=== PATIENT | female | born 1960 | race Caucasian/White ===

== ENCOUNTER 2018-05-20 20:25 | Emergency (ER) | payer BC ==
[~2018-05-20] VITALS: Ht 162.6 cm; Wt 54.4 kg
--- OUTSIDE RECORDS SUMMARY | 2018-05-20 20:27 | XMS REPORT | Clinical Summary ---
Author Author [facility] Organization [facility] Address Unknown Phone Unavailable Care Team Providers Care Manuscripts Curator Name Role Phone Yuki Shabazz MD PCP Allergies Comments Active Allergy Reactions Severity Noted Date Myalgias, ? Knee pain. Cyclobenzaprine Palpitations Low 11/17/2012 Burning of skin with large blisters, skin very raw Sulfa (Sulfonamide Rash Low 11/28/2007 Antibiotics) Medications End Date Status Medication Sig Dispensed Refills Start Date Active aspirin-calcium carbonate Take 81 mg by 0 81 mg-300 mg calcium(777 mouth. mg) tablet Active LOPREEZA 1-0.5 mg per 10 tablet 8 Active multivitamin (THERAGRAN) Take by 0 tablet mouth. Active biotin 5 mg capsule Take by 0 mouth. Active cholecalciferol, vitamin Take by 0 D3, (VITAMIN D3) 1,000 mouth. unit tablet Active estradiol (ESTRACE) 0.01 Insert 2 g 0 % (0.1 mg/gram) vaginal into the cream vagina daily. Active traMADol (ULTRAM) 50 mg Take 50 mg by 0 tablet mouth every 6 (six) hours as needed for moderate pain. Active indomethacin (INDOCIN) 25 Take 25 mg by 0 MG capsule mouth 2 (two) times a day with meals. 11/01/2017 Discontinued baclofen (LIORESAL) 10 MG TAKE 1 TABLET 0 tablet BY MOUTH 7 EVERY NIGHT AT BEDTIME 11/01/2017 Discontinued meloxicam (MOBIC) 15 mg Take 1 tablet 30 tablet 3 tablet (15 mg total) 8 by mouth daily for 120 days. Take with food Active Problems Problem Noted Date De Quervain's tenosynovitis, right 09/10/2017 Encounters Care Team Description Date Type Specialty Yuki Shabazz MD 02/25/2018 Telephone Family Medicine Yuki Shabazz MD 11/03/2017 Orders Only Family Medicine Yuki Shabazz MD Annual visit for general adult medical examination with abnormal findings; Fatigue, unspecified type; Vitamin D deficiency 11/01/2017 Lab Lab Yuki Shabazz MD Well woman exam with routine gynecological exam (Primary Dx); Annual visit for general adult medical examination with abnormal findings; Osteopenia, unspecified location; Vitamin D deficiency; Fatigue, unspecified type; Colon cancer screening 11/01/2017 Office Visit Family Medicine Gege Luis MA De Blake's tenosynovitis, right (Primary Dx) 09/22/2017 Orders Only Orthopedic Surgery Gege Luis MA 09/13/2017 Orders Only Orthopedic Surgery Yfn Nuñez MD De Quervain's tenosynovitis, right (Primary Dx); Tendonitis of wrist, right 09/10/2017 Office Visit Orthopedic Surgery after 05/19/2017 Immunizations Name Dates Previously Given Next Due Tdap 03/21/2017, 04/27/2013 Family History Medical History Relation Name Comments Cancer Father Torres oral; smoker Tuberculosis Father Torres Cirrhosis Mother alcoholic Relation Name Status Comments Father Torres Mother Social History Date Tobacco Use Types Packs/Day Years Used Never Smoker Smokeless Tobacco: Never Used Alcohol Use Drinks/Week oz/Week Comments No Sex Assigned at Date Recorded Not on file Industry Job Start Date Occupation Not on file Not on file Not on file Travel End Travel History Travel Start No recent travel history available. Last Filed Vital Signs Time Taken Vital Sign Reading 11/01/2017 8:25 AM CDT Blood Pressure 156/73 11/01/2017 8:25 AM CDT Pulse 73 11/01/2017 8:25 AM CDT Temperature 37.1 C (98.7 F) - Respiratory Rate - 11/01/2017 8:25 AM CDT Oxygen Saturation 100% - Inhaled Oxygen - Concentration 11/01/2017 8:25 AM CDT Weight 64 kg (141 lb) 11/01/2017 8:25 AM CDT Height 157.5 cm (5' 2") 11/01/2017 8:25 AM CDT Body Mass Index 25.79 Plan of Treatment Health Maintenance Due Date Last Done Comments BREAST CANCER SCREENING 10/05/2009 COLON CANCER SCREENING 10/05/2009 SHINGRIX VACCINE (1 of 2) 10/05/2009 INFLUENZA VACCINE 01/19/2018 03/21/2017, 03/05/2016, 04/21/2015, Additional history exists CERVICAL CANCER SCREENING 11/01/2020 11/01/2017 HEPATITIS B VACCINES Aged Out No longer eligible based on patient's age to complete this topic IPV VACCINES Aged Out No longer eligible based on patient's age to complete this topic MENINGOCOCCAL VACCINE Aged Out No longer eligible based on patient's age to complete this topic Procedures Comments Procedure Name Priority Date/Time Associated Diagnosis OCCULT BLOOD, STOOL Routine 11/03/2017 12:00 AM CDT THINPREP TIS PAP AND HPV Routine 11/01/2017 MRNA E6/E7 REFLEX HPV 9:19 AM CDT 16,18/45 PAP W/AGE BASED SCREENING Routine 11/01/2017 Well woman exam with PROTOCOLS 9:19 AM CDT routine gynecological exam VITAMIN D 25 HYDROXY Routine 11/01/2017 Vitamin D deficiency LEVEL 9:13 AM CDT THYROID STIMULATING Routine 11/01/2017 Fatigue, unspecified type HORMONE 9:13 AM CDT URINALYSIS, AUTOMATED Routine 11/01/2017 Annual visit for general WITH MICROSCOPY 9:13 AM CDT adult medical examination with abnormal findings LIPID PANEL Routine 11/01/2017 Annual visit for general 9:13 AM CDT adult medical examination with abnormal findings COMPREHENSIVE METABOLIC Routine 11/01/2017 Annual visit for general PANEL 9:13 AM CDT adult medical examination with abnormal findings CBC WITH PLATELET AND Routine 11/01/2017 Annual visit for general DIFFERENTIAL 9:13 AM CDT adult medical examination with abnormal findings XR HAND 3+ VW RIGHT Routine 09/10/2017 Tendonitis of wrist, 2:51 PM CDT right [place] INJECT TENDON Routine 09/10/2017 De Quervain's SHEATH/LIGAMENT 2:50 PM CDT tenosynovitis, right after 05/19/2017 Results * Occult blood, stool (11/03/2017 12:00 AM CDT) Fecal globin result SEE NOTE [employer] Comment: [place] FECAL GLOBIN BY IMMUNOCHEMISTRY MICRO NUMBER:[id number] TEST STATUS: FINAL SPECIMEN SOURCE: INSURE (TM) FOBT TEST CARD SPECIMEN QUALITY:ADEQUATE RESULT: Not Detected Narrative Performed At FASTING: UNKNOWN [facility] Resulting Agency Comment Performing Organization Information: Site ID: [id number] Name: [facility] Address: [address] [place] [phone] Director: Zeynep Heath Performing Organization Address City/[facility]/Zipcode Phone Number [facility] [employer] [address] [address] * PAP W/AGE BASED SCREENING PROTOCOLS (11/01/2017 9:19 AM CDT) Comment Comment: [facility] This order for age-based [facility] cancer and STI II screening follows ACOG guidelines(PB 168, 140, OCQ624). See individual assays for performing site location. Specimen Swab Resulting Agency Comment Performing Organization Information: Site ID: [id number] [facility]: [facility] Address: [address] [place] [phone] Director: Dr. Gutierrez Arias Performing Organization Address [facility]/Zipcode Phone Number [address] [place] [address] II * THINPREP TIS PAP AND HPV mRNA E6/E7 REFLEX HPV 16,18/45 (11/01/2017 9:19 AM CDT) Clinical information None given [employer] [place] Date of last menstrual NONE GIVEN [facility] period [place] Prev. pap: NONE GIVEN [facility] [place] Prev. bx: NONE GIVEN [facility] [place] Source None given [facility] [place] Statement of adequacy Comment: [facility] Satisfactory for evaluation. [place] Endocervical/transformation zone component absent. Interpretation/result: Comment: Negative for [employer] intraepithelial lesion or [place] malignancy. Comment Comment: [employer] This Pap test has been [place] evaluated with computer assisted technology. 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 It is not a diagnostic test and is subject to false negative and false positive results. It is most reliable when a satisfactory sample, regularly obtained, is submitted with relevant clinical findings and history, and when the Pap result is evaluated along with historic and current clinical information. HPV mRNA e6/e7 Not Detected Not Detected [employer] Comment: [place] This test was performed using the APTIMA HPV Assay ([employer] This assay detects E6/E7 viral messenger RNA (mRNA) from 14 high-risk HPV types (16,18,31,33,35,39,45,51,52,56 ,58,59,66,68). Resulting Agency Comment Performing Organization Information: Site ID: [id number] Name: [facility] Address: [address] [place] [phone] Director: Zeynep Heath Performing Organization Address [facility] [place] [address] * Vitamin D 25 hydroxy level (11/01/2017 9:13 AM CDT) Vitamin D, 25-hydroxy 43 30 - 100 ng/mL [facility] Comment: [place] Vitamin D Status 25-OH Vitamin D: Deficiency: <20 ng/mL Insufficiency: 20 - 29 ng/mL Optimal: > or=30 ng/mL For 25-OH Vitamin D testing on patients on D2-supplementation and patients for whom quantitation of D2 and D3 fractions is required, the QuestAssureD(TM) 25-OH VIT D, (D2,D3), LC/MS/MS is recommended: order code 44931 (patients >2yrs). For more information on this test, go to: http://education.[facility].com/faq/FMG478 (This link is being provided for informational/educational purposes only.) Specimen Blood Resulting Agency Comment Performing Organization Information: Site ID: [id number] Name: [facility] Address: [address] [place] [phone] Director: Zeynep Heath Performing Organization Address [facility] [place] [address] * Urinalysis, automated with microscopy (11/01/2017 9:13 AM CDT) Color, UA YELLOW YELLOW [employer] [place] Appearance CLEAR CLEAR [facility] [place] Specific gravity, urine 1.012 1.001 - 1.035 [facility] [place] pH, urine 5.5 5.0 - 8.0 [facility] [place] Glucose, urine NEGATIVE NEGATIVE [facility] [place] Bilirubin, UA NEGATIVE NEGATIVE [facility] [place] Ketones, UA NEGATIVE NEGATIVE [facility] [place] Occult blood, urine NEGATIVE NEGATIVE [facility] [place] Protein, UA NEGATIVE NEGATIVE [facility] [place] Nitrite, UA NEGATIVE NEGATIVE [facility] [place] Leukocyte esterase, UA NEGATIVE NEGATIVE [facility] [place] WBC, UA 0-5 < OR=5 /HPF [facility] [place] RBC, UA 0-2 < OR=2 /HPF [facility] [place] Squamous epithelial 0-5 < OR=5 /HPF [facility] cells, UA [place] Bacteria, UA FEW (A) NONE SEEN /HPF [facility] [place] Hyaline casts, UA NONE SEEN NONE SEEN /LPF [employer] [place] Specimen Blood Resulting Agency Comment Performing Organization Information: Site ID: [id number] Name: [facility] Address: [address] [place] [phone] Director: Zeynep Heath Performing Organization Address City/State/Zipcode Phone Number [facility] [place] [phone] * CBC with platelet and differential (11/01/2017 9:13 AM CDT) WBC 10.7 3.8 - 10.8 Thousand/uL [employer] [place] RBC 4.56 3.80 - 5.10 Million/uL [employer] [place] HGB 12.5 11.7 - 15.5 g/dL [employer] [place] HCT 38.9 35.0 - 45.0 % [employer] [place] MCV 85.3 80.0 - 100.0 fL [employer] [place] MCH 27.4 27.0 - 33.0 pg [employer] [place] MCHC 32.1 32.0 - 36.0 g/dL [employer] [place] RDW 13.5 11.0 - 15.0 % [employer] [place] Platelet count 378 140 - 400 Thousand/uL [employer] [place] MPV 10.0 7.5 - 12.5 fL [employer] [place] Neutrophils, absolute 8,079 (H) 1,500 - 7,800 cells/uL [employer] [place] Lymphocytes, absolute 1,680 850 - 3,900 cells/uL [employer] [place] Monocytes, absolute 674 200 - 950 cells/uL [employer] [place] Eosinophils, absolute 203 15 - 500 cells/uL [employer] [place] Basophils, absolute 64 0 - 200 cells/uL [employer] [place] Neutrophils 75.5 % [employer] [place] Lymphocytes 15.7 % [facility] Monocytes 6.3 % [facility] Eosinophils 1.9 % [facility] Basophils + RC 0.6 % [employer] [place] Specimen Blood Resulting Agency Comment Performing Organization Information: Site ID: [facility] [place]) Name: [facility] Address: [address] [place] [address] Director: Zeynep Heath Performing Organization Address City/[facility] [place] Phone Number [facility] [place] [place] [address] * Thyroid stimulating hormone (11/01/2017 9:13 AM CDT) TSH 3.03 0.40 - 4.50 mIU/L [facility] [employer] [place] Specimen Blood Resulting Agency Comment Performing Organization Information: Site ID: [facility] [place]) Name: [facility] Address: [address] [place] [address] Director: Zeynep Heath Performing Organization Address [facility] [place] [address] * Lipid panel (11/01/2017 9:13 AM CDT) Cholesterol, total 193 <200 mg/dL [facility] [employer] [place] HDL cholesterol 48 (L) >50 mg/dL [employer] [place] Triglycerides 58 <150 mg/dL [facility] LDL cholesterol 131 (H) mg/dL (calc) [employer] calculated Comment: [place] Reference range: <100 Desirable range <100 mg/dL for primary prevention; <70 mg/dL for patients with CHD or diabetic patients with > or=2 CHD risk factors. LDL-C is now calculated using the Kush calculation, which is a validated novel method providing better accuracy than the Friedewald equation in the estimation of LDL-C. Gabriel THURSTON et al. JERRELL. 2013;310(19): 2767-2764 (http://education.[employer].com/faq/QQB162) Cholesterol/HDL ratio 4.0 <5.0 (calc) [facility] Non-HDL cholesterol 145 (H) <130 mg/dL (calc) [employer] Comment: [place] For patients with diabetes plus 1 major ASCVD risk factor, treating to a non-HDL-C goal of <100 mg/dL (LDL-C of <70 mg/dL) is considered a therapeutic option. Specimen Blood Resulting Agency Comment Performing Organization Information: Site ID: [id number] Name: [facility] Address: [address] [place] [phone] Director: Zeynep Heath Performing Organization Address City/State/Zipcode Phone Number [facility] [address] [address] * Comprehensive metabolic panel (11/01/2017 9:13 AM CDT) Glucose 92 65 - 99 mg/dL [employer] Comment: [place] Fasting reference interval BUN, whole blood 12 7 - 25 mg/dL [employer] [place] Creatinine 0.68 0.50 - 1.05 mg/dL [employer] Comment: [place] For patients >49 years of age, the reference limit for Creatinine is approximately 13% higher for people identified as -Lebanese. EGFR Non-Afr. [place] 96 > OR=60 mL/min/1.73m2 [employer] [place] EGFR 112 > OR=60 mL/min/1.73m2 [facility] BUN/creatinine ratio NOT APPLICABLE 6 - 22 (calc) [employer] [place] Sodium 142 135 - 146 mmol/L [facility] Potassium 3.8 3.5 - 5.3 mmol/L [employer] [place] Chloride 108 98 - 110 mmol/L [employer] [place] CO2 29 20 - 31 mmol/L [employer] [place] Calcium 8.9 8.6 - 10.4 mg/dL [employer] [place] Protein 6.6 6.1 - 8.1 g/dL [employer] [place] Albumin, S 4.1 3.6 - 5.1 g/dL [employer] [place] Globulin, total 2.5 1.9 - 3.7 g/dL (calc) [facility] Albumin/globulin ratio 1.6 1.0 - 2.5 (calc) [employer] [place] Total bilirubin 0.3 0.2 - 1.2 mg/dL [employer] [place] Alkaline phosphatase 49 33 - 130 U/L [employer] [place] AST 14 10 - 35 U/L [employer] [place] ALT 17 6 - 29 U/L [employer] [place] Specimen Blood Resulting Agency Comment Performing Organization Information: Site ID: [id number] Name: [facility] Address: [address] [place] [address] Director: Zeynep Heath Performing Organization Address City/State/Zipcode Phone Number [facility] [place] [address] [place], [place] [phone] * XR Hand 3+ Vw Right (09/10/2017 2:51 PM CDT) Impressions Performed At Negative study. [facility] Narrative Performed At [facility] FINDINGS: 3 views demonstrate no fracture, dislocation or radiopaque foreign body. There is no chondrocalcinosis or soft tissue calcification. Joint spaces are within normal limits. Performing Organization Address City/[facility]/Zipcode Phone Number [facility] [address] [place] [address] * Hand/Upper Extremity Injection/Arthrocentesis (09/10/2017 2:50 PM CDT) Narrative Performed At Yfn Nuñez MD 09/10/20173:26 PM Hand/Upper Extremity Injection/Arthrocentesis Date/Time: 09/10/2017 3:23 PM Consent given by: patient Site marked: site marked Timeout: Immediately prior to procedure a time out was called to verify the correct patient, procedure, equipment, learning support assistant and site/side marked as required Supporting Documentation Indications: therapeutic Procedure Details Condition: de Quervain's tenosynovitis Site: R extensor compartment 1 Preparation: Patient was prepped and draped in the usual sterile fashion Right side: Needle size: 27 G Approach: medial Patient tolerance: patient tolerated the procedure well with no immediate complications Right Extensor Compartment 1 Medications administered: 3 mg betamethasone acetate & sodium phosphate 6 mg/mL; 0.5 mL lidocaine 10 mg/mL (1 %) Injection Type: tendon sheath Platelet Rich Plasma Used: no PRP Used Fluoroscopic Needle Guidance Used: no fluoroscopic needle guidance after 05/19/2017 Insurance Payer Benefit Subscriber ID Type Phone Address Plan / Group BCBS [employer]STINA xxxxxxxxxxxx PPO BLUE CROSS Advance Directives Patient has advance care planning documents on file. For more information, brien deleon contact: Regan Soriano [phone] [place] [address]
[2018-05-20] MEDS ORDERED: LIDOCAINE HCL 1% LOCAL INJ 20 ML VIAL INJ ONE (20:45)
[2018-05-20] MEDS ORDERED: TETANUS/DIPHTHERIA TOX ADULT 0.5 ML SYR IM ONE (21:15)
[2018-05-20] MEDS ORDERED: BACITRACIN ZINC 0.9GM TP ONE (21:15)
== END 2018-05-20 21:30 | disposition home or self-care (01) ==
LOC: FSED 20:25
DX: S61.012A Laceration without foreign body of left thumb without damage to nail, initial encounter (principal); W45.8XXA Other foreign body or object entering through skin, initial encounter; Y92.008 Other place in unspecified non-institutional (private) residence as the place of occurrence of the external cause
CPT/HCPCS: 12001; 90471; 90714; 99283; J2001

== ENCOUNTER → 2021-03-13 | Day surgery (SDC) | payer BC ==
[2021-03-12 09:57] LABS: INR 0.91; PROTHROMBIN TIME 12.5 seconds (11.9-14.5)
[2021-03-12 09:58] LABS: PARTIAL THROMBOPLASTIN TIME 34.3 seconds (23.8-35.5)
[2021-03-12 09:59] LABS: BASOPHILS # (AUTO) 0.1 (0.0-0.1); BASOPHILS % 0.6 % (0.0-1.0); EOSINOPHILS # (AUTO) 0.3 (0.0-0.4); EOSINOPHILS % 3.9 % (0.0-6.0); HEMATOCRIT 39.4 % (34.2-44.1); HEMOGLOBIN 12.3 g/dL (12.0-16.0); LYMPHOCYTES # (AUTO) 1.9 (1.0-3.2); LYMPHOCYTES % 23.9 % (18.0-39.1); MEAN CORPUSCULAR HGB CONC 31.2 g/dL (31-35); MEAN CORPUSCULAR VOLUME 86.6 fL (81-99); MONOCYTES # (AUTO) 0.7 (0.2-0.8); MONOCYTES % 8.9 % (4.4-11.3); NEUTROPHILS # (AUTO) 4.8 (2.1-6.9); NEUTROPHILS % 62.3 % (38.7-80.0); PLATELET COUNT 401 x10e3/uL (140-360); RED BLOOD COUNT 4.55 x10e6/uL (3.6-5.1); RED CELL DISTRIBUTION WIDTH 14.1 % (11.7-14.4)
[2021-03-12 10:11] LABS: ANION GAP 13.8 mmol/L (8-16); CALCIUM 9.2 mg/dL (8.4-10.2); CREATININE, SERUM 0.7 mg/dL (0.57-1.11); POTASSIUM 3.8 mmol/L (3.5-5.1)
[~2021-03-13] MED LIST: ACETAMINOP-CODEI5 ML PO; ACETAMINOPHEN 325 MG TAB PO PRN; ASPIRIN81 MG PO; BIOTIN10 MG PO; CALCIUM ACETAT667 MG PO; CARISOPRODOL 350 MG TAB ONE; CARISOPRODOL 350 MG TAB PO PRN; Cefazolin 1 GM in SODIUM CHLORIDE 0.9% 50ML 50 ML IV SCH; ESTRADIOL1 MG PO; HYDROCODON-ACE1 EA12 PO; HYDROCODONE/APAP 7.5MG-325MG 1 EA TAB ONE; HYDROMORPHONE 2MG/ML 2 MG/ML ML IV PRN; LACTATED RINGER'S 1,000 ML IV SCH; LEXAPRO10 MG PO; LIDOCAINE 1% W/EPINEPHRINE 20 ML VIAL ONE; LIPITOR10 MG PO; MAGNESIUM/ALUMINUM/SIMETHICONE 30 ML UDC PO PRN; MORPHINE SULFATE 5 MG/ML VIAL IM PRN; ONDANSETRON HCL INJ 2MG/ML 2ML 2 MG/ML VIAL IV PRN; OXYCODONE/ACETAMINOPHEN 5-325 1 EACH TABLET PO PRN; PROMETHAZINE HCL (IM) 25 MG/ML VIAL IM PRN; SODIUM CHLORIDE 0.9% 50ML 100 ML ONE; THROMBIN FOR SOLN 5,000 UNIT VIAL ONE; TURMERIC538 MG PO; VITAMIN E1000 UNI1 PO; Vancomycin IV 1 GM VIAL ONE; ZOLPIDEM TARTRATE 5 MG TAB PO PRN
[2021-03-13 12:00] VITALS: BP 122/66
== END | disposition home or self-care (01) ==
LOC: OR 07:58
PROVIDERS: ATTEND Neurological Surgery
DX: M51.26 Other intervertebral disc displacement, lumbar region (principal); M51.16 Intervertebral disc disorders with radiculopathy, lumbar region; M81.0 Age-related osteoporosis without current pathological fracture; I49.3 Ventricular premature depolarization; E78.5 Hyperlipidemia, unspecified; F41.9 Anxiety disorder, unspecified; Z01.810 Encounter for preprocedural cardiovascular examination; Z01.812 Encounter for preprocedural laboratory examination; Z01.818 Encounter for other preprocedural examination; Z20.822 Contact with and (suspected) exposure to COVID-19; Z79.82 Long term (current) use of aspirin
CPT/HCPCS: 36415; 63047; 71046; 72020; 80048; 85025; 85610; 85730; 86850; 86900; 88304; 88311; 93005; J0690; J2270; J3370; U0002

== ENCOUNTER 2021-03-19 12:48 | Inpatient (IN) | payer BC ==
[~2021-03-19] VITALS: Ht 162.6 cm; Wt 54.4 kg
[~2021-03-19 12:48] MED LIST changes: -ACETAMINOPHEN 325 MG TAB PO PRN; -CARISOPRODOL 350 MG TAB ONE; -CARISOPRODOL 350 MG TAB PO PRN; -Cefazolin 1 GM in SODIUM CHLORIDE 0.9% 50ML 50 ML IV SCH; -HYDROCODONE/APAP 7.5MG-325MG 1 EA TAB ONE; -HYDROMORPHONE 2MG/ML 2 MG/ML ML IV PRN; -LACTATED RINGER'S 1,000 ML IV SCH; -LIDOCAINE 1% W/EPINEPHRINE 20 ML VIAL ONE; -MAGNESIUM/ALUMINUM/SIMETHICONE 30 ML UDC PO PRN; -MORPHINE SULFATE 5 MG/ML VIAL IM PRN; -ONDANSETRON HCL INJ 2MG/ML 2ML 2 MG/ML VIAL IV PRN; -OXYCODONE/ACETAMINOPHEN 5-325 1 EACH TABLET PO PRN; -PROMETHAZINE HCL (IM) 25 MG/ML VIAL IM PRN; -SODIUM CHLORIDE 0.9% 50ML 100 ML ONE; -THROMBIN FOR SOLN 5,000 UNIT VIAL ONE; -Vancomycin IV 1 GM VIAL ONE; -ZOLPIDEM TARTRATE 5 MG TAB PO PRN
[2021-03-19 13:56] LABS: BASOPHILS # (AUTO) 0.1 (0.0-0.1); BASOPHILS % 0.4 % (0.0-1.0); EOSINOPHILS # (AUTO) 0.1 (0.0-0.4); EOSINOPHILS % 0.4 % (0.0-6.0); HEMATOCRIT 42.8 % (34.2-44.1); HEMOGLOBIN 13.9 g/dL (12.0-16.0); LYMPHOCYTES # (AUTO) 1.9 (1.0-3.2); LYMPHOCYTES % 13.2 % (18.0-39.1); MEAN CORPUSCULAR HEMOGLOBIN 26.8 pg (28-32); MEAN CORPUSCULAR HGB CONC 32.5 g/dL (31-35); MEAN CORPUSCULAR VOLUME 82.6 fL (81-99); MONOCYTES # (AUTO) 1.1 (0.2-0.8); MONOCYTES % 7.5 % (4.4-11.3); NEUTROPHILS # (AUTO) 11.3 (2.1-6.9); NEUTROPHILS % 77.1 % (38.7-80.0); PLATELET COUNT 608 x10e3/uL (140-360); RED BLOOD COUNT 5.18 x10e6/uL (3.6-5.1); RED CELL DISTRIBUTION WIDTH 13.7 % (11.7-14.4)
[2021-03-19 14:28] LABS: ALBUMIN 3.9 g/dL (3.5-5.0); ALBUMIN/GLOBULIN RATIO 0.9 (0.8-2.0); CALCIUM 9.6 mg/dL (8.4-10.2); CREATININE, SERUM 0.69 mg/dL (0.57-1.11)
[2021-03-19] MEDS ORDERED: DEXAMETHASONE SOD PHOS 10 MG/1 ML VIAL IV ONE (15:15)
[2021-03-19] MEDS ORDERED: GADOBENATE DIMEGLUMINE 1 ML IV ONE (16:24)
[2021-03-19 18:05] VITALS: BP 159/92
[2021-03-19 20:00] VITALS: BP 159/92
[2021-03-19] MEDS: DEXAMETHASONE SOD PHOS INJ 4 MG/ML SDV IV SCH (20:45)
[2021-03-19] MEDS: ONDANSETRON HCL INJ 2MG/ML 2ML 2 MG/ML VIAL IV PRN (20:54)
[2021-03-19 20:55] VITALS: BP 177/83
[2021-03-19] MEDS: Morphine 4mg Syringe 4 MG/ML INJ IV PRN (20:55)
[2021-03-19 21:47] VITALS: BP 177/83
[2021-03-20] VITALS (8 sets, daily range): BP systolic 119–141; BP diastolic 59–86
[2021-03-20] MEDS: ONDANSETRON HCL INJ 2MG/ML 2ML 2 MG/ML VIAL IV PRN ×5 (00:58→21:45)
[2021-03-20] MEDS: Morphine 4mg Syringe 4 MG/ML INJ IV PRN ×4 (00:58→15:20)
[2021-03-20 08:38] LABS: BASOPHILS % 0.3 % (0.0-1.0); EOSINOPHILS % 0.1 % (0.0-6.0); HEMATOCRIT 41.8 % (34.2-44.1); HEMOGLOBIN 13.2 g/dL (12.0-16.0); LYMPHOCYTES # (AUTO) 2.1 (1.0-3.2); LYMPHOCYTES % 13.4 % (18.0-39.1); MEAN CORPUSCULAR HEMOGLOBIN 26.9 pg (28-32); MEAN CORPUSCULAR HGB CONC 31.6 g/dL (31-35); MEAN CORPUSCULAR VOLUME 85.3 fL (81-99); MONOCYTES # (AUTO) 1.1 (0.2-0.8); MONOCYTES % 7.2 % (4.4-11.3); NEUTROPHILS # (AUTO) 12.1 (2.1-6.9); NEUTROPHILS % 77.7 % (38.7-80.0); PLATELET COUNT 590 x10e3/uL (140-360); RED CELL DISTRIBUTION WIDTH 13.9 % (11.7-14.4)
[2021-03-20 09:00] LABS: ALBUMIN 3.7 g/dL (3.5-5.0); ANION GAP 14.4 mmol/L (8-16); CALCIUM 9.9 mg/dL (8.4-10.2); CREATININE, SERUM 0.7 mg/dL (0.57-1.11); POTASSIUM 4.4 mmol/L (3.5-5.1)
[2021-03-20] MEDS: DEXAMETHASONE SOD PHOS INJ 4 MG/ML SDV IV SCH ×2 (09:36→21:45)
[2021-03-20] MEDS ORDERED: Vancomycin IV 1 GM VIAL ONE (11:57)
[2021-03-20] MEDS ORDERED: LIDOCAINE 1% W/EPINEPHRINE 20 ML VIAL ONE (11:57)
[2021-03-20] MEDS ORDERED: THROMBIN FOR SOLN 5,000 UNIT VIAL ONE (11:57)
[2021-03-20] MEDS ORDERED: MIDAZOLAM HCL 2 MG/2 ML VIAL ONE (13:28)
[2021-03-20] MEDS ORDERED: FENTANYL CITRATE/PF 100MCG/2 ML INJ ONE (13:28)
[2021-03-20] MEDS ORDERED: ACETAMINOPHEN 1000 MG/100 ML 100 ML IV ONE (13:29)
[2021-03-20] MEDS ORDERED: SUGAMMADEX SODIUM 200 MG/2 ML VIAL IV ONE (14:16)
[2021-03-20] MEDS ORDERED: MAGNESIUM/ALUMINUM/SIMETHICONE 30 ML UDC PO PRN (14:30)
[2021-03-20] MEDS ORDERED: MORPHINE SULFATE 5 MG/ML VIAL IM PRN (14:30)
[2021-03-20] MEDS ORDERED: PROMETHAZINE HCL (IM) 25 MG/ML VIAL IM PRN (14:30)
[2021-03-20] MEDS ORDERED: ACETAMINOPHEN 325 MG TAB PO PRN (14:30)
[2021-03-20] MEDS: LACTATED RINGER'S 1,000 ML IV SCH ×2 (15:20→22:26)
[2021-03-20] MEDS: OXYCODONE/ACETAMINOPHEN 5-325 1 EACH TABLET PO PRN (18:19)
[2021-03-20] MEDS ORDERED: ZOLPIDEM TARTRATE 5 MG TAB PO PRN (21:00)
[2021-03-20] MEDS: HYDROMORPHONE 2MG/ML 2 MG/ML ML IV PRN (21:45)
[2021-03-20] MEDS: Cefazolin 1 GM in SODIUM CHLORIDE 0.9% 50ML 50 ML IV SCH (21:45)
[2021-03-21] VITALS (7 sets, daily range): BP systolic 123–154; BP diastolic 70–85
[2021-03-21] MEDS: ONDANSETRON HCL INJ 2MG/ML 2ML 2 MG/ML VIAL IV PRN ×5 (03:20→23:48)
[2021-03-21] MEDS: HYDROMORPHONE 2MG/ML 2 MG/ML ML IV PRN ×5 (03:20→23:48)
[2021-03-21] MEDS: LACTATED RINGER'S 1,000 ML IV SCH ×3 (05:50→23:45)
[2021-03-21] MEDS: Cefazolin 1 GM in SODIUM CHLORIDE 0.9% 50ML 50 ML IV SCH ×2 (05:50→13:30)
[2021-03-21] MEDS: DEXAMETHASONE SOD PHOS INJ 4 MG/ML SDV IV SCH ×2 (08:57→20:33)
[2021-03-22] VITALS (9 sets, daily range): BP systolic 125–155; BP diastolic 67–90
[2021-03-22] MEDS: OXYCODONE/ACETAMINOPHEN 5-325 1 EACH TABLET PO PRN ×3 (02:20→17:30)
[2021-03-22] MEDS: ONDANSETRON HCL INJ 2MG/ML 2ML 2 MG/ML VIAL IV PRN ×2 (04:52→13:41)
[2021-03-22] MEDS: HYDROMORPHONE 2MG/ML 2 MG/ML ML IV PRN ×2 (04:52→13:31)
[2021-03-22 04:58] LABS: BASOPHILS % 0.2 % (0.0-1.0); EOSINOPHILS % 0.1 % (0.0-6.0); HEMATOCRIT 36.2 % (34.2-44.1); HEMOGLOBIN 11.7 g/dL (12.0-16.0); LYMPHOCYTES % 11.6 % (18.0-39.1); MEAN CORPUSCULAR HEMOGLOBIN 27.1 pg (28-32); MEAN CORPUSCULAR HGB CONC 32.3 g/dL (31-35); MEAN CORPUSCULAR VOLUME 83.8 fL (81-99); MONOCYTES # (AUTO) 1.2 (0.2-0.8); MONOCYTES % 6.8 % (4.4-11.3); NEUTROPHILS # (AUTO) 13.2 (2.1-6.9); NEUTROPHILS % 77.7 % (38.7-80.0); PLATELET COUNT 491 x10e3/uL (140-360); RED BLOOD COUNT 4.32 x10e6/uL (3.6-5.1); RED CELL DISTRIBUTION WIDTH 13.9 % (11.7-14.4)
[2021-03-22 05:22] LABS: ALBUMIN 3.3 g/dL (3.5-5.0); ALBUMIN/GLOBULIN RATIO 1.1 (0.8-2.0); ANION GAP 13.1 mmol/L (8-16); CALCIUM 8.7 mg/dL (8.4-10.2); CREATININE, SERUM 0.61 mg/dL (0.57-1.11); POTASSIUM 4.1 mmol/L (3.5-5.1)
[2021-03-22] MEDS: DEXAMETHASONE SOD PHOS INJ 4 MG/ML SDV IV SCH ×2 (08:38→20:55)
[2021-03-22] MEDS: CARISOPRODOL 350 MG TAB PO PRN (22:27)
[2021-03-23] VITALS (7 sets, daily range): BP systolic 111–144; BP diastolic 56–79
[2021-03-23] MEDS: OXYCODONE/ACETAMINOPHEN 5-325 1 EACH TABLET PO PRN ×2 (03:57→20:08)
[2021-03-23 07:14] LABS: BASOPHILS % 0.2 % (0.0-1.0); EOSINOPHILS % 0.1 % (0.0-6.0); HEMATOCRIT 37.4 % (34.2-44.1); LYMPHOCYTES # (AUTO) 2.2 (1.0-3.2); LYMPHOCYTES % 14.7 % (18.0-39.1); MEAN CORPUSCULAR HGB CONC 32.1 g/dL (31-35); MONOCYTES # (AUTO) 1.2 (0.2-0.8); MONOCYTES % 7.8 % (4.4-11.3); NEUTROPHILS # (AUTO) 11.1 (2.1-6.9); NEUTROPHILS % 74.6 % (38.7-80.0); PLATELET COUNT 523 x10e3/uL (140-360); RED BLOOD COUNT 4.45 x10e6/uL (3.6-5.1); RED CELL DISTRIBUTION WIDTH 14.1 % (11.7-14.4)
[2021-03-23] MEDS: HYDROMORPHONE 2MG/ML 2 MG/ML ML IV PRN ×2 (08:32→13:31)
[2021-03-23] MEDS: DEXAMETHASONE SOD PHOS INJ 4 MG/ML SDV IV SCH ×2 (08:32→22:21)
[2021-03-23] MEDS: ONDANSETRON HCL INJ 2MG/ML 2ML 2 MG/ML VIAL IV PRN ×2 (08:32→13:31)
[2021-03-23] MEDS: CARISOPRODOL 350 MG TAB PO PRN (22:45)
[2021-03-24] VITALS: BP 118/69
[2021-03-24] MEDS: ONDANSETRON HCL INJ 2MG/ML 2ML 2 MG/ML VIAL IV PRN ×2 (01:40→10:38)
[2021-03-24 04:00] VITALS: BP 143/69
[2021-03-24 07:45] VITALS: BP 98/83
[2021-03-24 08:07] VITALS: BP 98/83
[2021-03-24] MEDS: DEXAMETHASONE SOD PHOS INJ 4 MG/ML SDV IV SCH (09:00)
[2021-03-24] MEDS: HYDROMORPHONE 2MG/ML 2 MG/ML ML IV PRN ×2 (10:38→14:45)
[2021-03-24 12:00] VITALS: BP 123/81
[2021-03-24 16:00] VITALS: BP 132/58
[2021-03-24] MEDS ORDERED: ONDANSETRON HCL INJ 2MG/ML 2ML 2 MG/ML VIAL IV ONE (17:27)
[2021-03-24] MEDS ORDERED: PROPOFOL IV EMULSION 10 MG/ML 20 ML VIAL IV ONE (17:27)
[2021-03-24] MEDS ORDERED: LIDOCAINE HCL 2% LOCAL INJ 5 ML SDV VIAL INJ ONE (17:27)
[2021-03-24] MEDS ORDERED: ROCURONIUM BROMIDE 10 MG/ML 5ML VIAL IV ONE (17:27)
[2021-03-24] MEDS ORDERED: POVIDONE IODINE 0.05% 0.05 % ML PO ONE (17:27)
[2021-03-24] MEDS ORDERED: DEXAMETHASONE SOD PHOS INJ 4 MG/ML SDV IV ONE ×2 (17:27)
[2021-03-24] MEDS ORDERED: DESFLURANE 240 ML BTL INH ONE (17:27)
== END 2021-03-24 17:28 | disposition home health service (06) | DRG 517 ==
LOC: ER 12:57 → ERHOLD 15:22 → MED/SURG2 18:13
PROVIDERS: ADMIT Family Medicine; ATTEND Family Medicine
PROC: 01NB0ZZ Release Lumbar Nerve, Open Approach (ICD-10-PCS; principal; 2021-03-19)
DX: M51.16 Intervertebral disc disorders with radiculopathy, lumbar region (principal); E78.5 Hyperlipidemia, unspecified; G89.18 Other acute postprocedural pain; F32.A Depression, unspecified; I10 Essential (primary) hypertension; D64.9 Anemia, unspecified; I95.9 Hypotension, unspecified; Z20.822 Contact with and (suspected) exposure to COVID-19
CPT/HCPCS: 36415; 72158; 80053; 85025; 88304; 88311; 97139; 99284; J0690; J1100; J2001; J2250; J2270; J2405; J3010; J3370; J7121; U0002